=== PATIENT | female | born 1955 | race Caucasian/White ===

== ENCOUNTER 2020-07-25 02:29 | Emergency (ER) | payer BC, OTHER ==
[2020-07-25] MEDS ORDERED: Ketorolac 30 MG/ML SDV IM ONE (02:59)
--- NOTE | 2020-07-25 03:10 | EDM.PDOC ---
<Myke Tee - Last Filed: 07/25/20 06:45> ED HPI GENERAL MEDICAL PROBLEM - General Chief Complaint: Genitourinary Problem Stated Complaint: POSSIBLE KIDNEY STONES Time Seen by Provider: 07/25/20 02:56 Source of Information: Reports: Patient History Limitations: Reports: No Limitations - History of Present Illness INITIAL COMMENTS - FREE TEXT/NARRATIVE: Izabela is a 64-year-old female presenting to the ED with complaint of an acute onset of right flank pain. Patient was in her usual state of health when she had the acute onset of symptoms about 1 hour prior to arrival. She is complaining of right flank pain radiating around to the right upper quadrant. She denies any frequency, urgency, or burning with urination. She denies any fever or chills. She does have some mild nausea. She denies any diarrhea or constipation. Ironically, the patient is scheduled to see urology tomorrow in [place] to evaluate for her history of kidney stones. She apparently had kidney stones 2 years ago and reports that during her CT scan at that time she had a 1 cm stone in the right kidney. Review of the medical records fails to demonstrate any significant scans in the past but there is conversation with Dr. Willett at [facility] concerning a referral to urology 2 years ago that apparently the patient did not follow through with. Patient denies any hematuria. She states her pain is pretty constant rating it an 8 out of 10. She denies any trauma or straining. The patient's past medical records from [facility] show that he she had a CT of the abdomen and pelvis on 08/22/2018 showing a a 1 cm nonobstructing stone within the interpolar region of the right kidney. There is a 5 mm stone in the distal left ureter causing obstruction and hydronephrosis. There is a 1 mm punctate nonobstructing stone within the inferior pole of the left kidney. Patient had a large hiatal hernia. 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: Dermatologic History: Reports: Eczema - Infectious Disease History Infectious Disease History: Reports: Chicken Pox, Measles, Novel Coronavirus - Past Surgical History HEENT Surgical History: Reports: Other (See Below) GI Surgical History: Reports: Colonoscopy, Polypectomy Social & Family History - Tobacco Use Tobacco Use Status *Q: Never Tobacco User - Recreational Drug Use Recreational Drug Use: No ED ROS GENERAL - Review of Systems Review Of Systems: See Below Constitutional: Reports: No Symptoms HEENT: Reports: No Symptoms Respiratory: Reports: No Symptoms Cardiovascular: Reports: No Symptoms Endocrine: Reports: No Symptoms GI/Abdominal: Reports: Abdominal Pain (Right upper quadrant and right flank), Nausea : Reports: Flank Pain (Right flank) Musculoskeletal: Reports: No Symptoms Skin: Reports: No Symptoms Neurological: Reports: No Symptoms Psychiatric: Reports: No Symptoms Hematologic/Lymphatic: Reports: No Symptoms Immunologic: Reports: No Symptoms ED EXAM, RENAL/ - Physical Exam Exam: See Below Exam Limited By: No Limitations General Appearance: Alert, Mild Distress Eye Exam: Bilateral Eye: EOMI, PERRL Throat/Mouth: Normal Inspection, Normal Voice, No Airway Compromise Head: Atraumatic, Normocephalic Neck: Normal Inspection Respiratory/Chest: No Respiratory Distress, Lungs Clear, Normal Breath Sounds Cardiovascular: Normal Peripheral Pulses, Regular Rate, Rhythm, No Murmur GI/Abdominal: Normal Bowel Sounds, Soft, Tender (Mild tenderness in right upper quadrant) Back Exam: Normal Inspection, Full Range of Motion, CVA Tenderness (R) (Mild). No: Muscle Spasm, Paraspinal Tenderness, Vertebral Tenderness Extremities: Normal Inspection Neurological: Alert, Oriented, Normal Cognition, No Motor/Sensory Deficits Psychiatric: Normal Affect Skin Exam: Warm, Dry, Intact, Normal Color Lymphatic: No Adenopathy Course - Radiology Interpretation Free Text/Narrative:: I reviewed the report from radiology on the CT of the abdomen and pelvis without contrast. There is a 1.2 x 1 cm stone in the right renal pelvis causing obstruction of the proximal right ureter and mild pelviectasis. There is a 1 mm stone in both inferior poles of the kidneys that are nonobstructing. There is an large gas-filled hiatal hernia. - Re-Assessments/Exams Free Text/Narrative Re-Assessment/Exam: 07/25/20 03:40 I reviewed the patient's labs including a CBC and comprehensive metabolic panel. Her CBC is unremarkable. Her comprehensive metabolic panel is significant for a glucose of 170. The patient does not carry the diagnosis of diabetes but does have the body habitus for it. I will have her follow-up with her primary care provider, Dr. Willett to determine if she is in fact diabetic. I did review the CT of the abdomen and pelvis without contrast showing a rather large stone in the right renal pelvis causing mild nephrosis. This is likely the nidus for her pain. The stone measures 1.1 x 1.3 cm. She does have a small punctate stone in the left inferior renal pole. There is no other stones identified. Patient was initially given Toradol 30 mg IM for pain control prior to the CT but now will be getting more liberalized pain control with Dilaudid and normal saline IV. In addition she was given Zofran 4 mg IV push for nausea. I discussed the case with Dr. Chan from the hospitalist service at [facility] to arrange for transfer of the patient. He accepts the patient in transfer, however, she will need to stay with us in the ED until a bed is available which may be later this morning. Ironically, the patient was already scheduled to see the urologist Dr. Downs at [facility] this afternoon for ureterolithiasis. 07/25/20 06:45 patient's COVID 19 test is negative. Care of the patient will be turned over to Dr. Zuñiga at 0700 hrs while awaiting a room assignment from [facility] this morning Departure - Departure Disposition: DC/Tfer to [facility] 02 Clinical Impression: Calcium ureterolithiasis, Renal colic on right side, Renal pelviectasis - Discharge Information Referrals: PCP,None [Primary Care Provider] - Forms: ED Department Discharge Sepsis Event Note (ED) - Evaluation Sepsis Screening Result: No Definite Risk - Problem List & Annotations (1) Calcium ureterolithiasis SNOMED Code(s): 68011920 Code(s): N20.1 - CALCULUS OF URETER Status: Acute Priority: High (2) Renal colic on right side SNOMED Code(s): 2065029 Code(s): N23 - UNSPECIFIED RENAL COLIC Status: Acute Priority: High (3) Renal pelviectasis SNOMED Code(s): 891041083 Code(s): N28.89 - OTHER SPECIFIED DISORDERS OF KIDNEY AND URETER Status: Acute Priority: High - Problem List Review Problem List Initiated/Reviewed/Updated: Yes <Rhett Chen - Last Filed: 07/25/20 12:42> Course - Vital Signs Last Recorded V/S: Last Vital Signs Temp 97.0 F 07/25/20 02:46 Pulse 74 07/25/20 11:05 Resp 12 07/25/20 10:00 BP 124/67 07/25/20 11:05 Pulse Ox 94 L 07/25/20 11:05 - Orders/Labs/Meds Orders: Active Orders 24 hr Category Date Time Status Isolation [COMM] Stat Oth 07/25/20 03:54 Ordered Saline Lock Insert [OM.PC] Routine Oth 07/25/20 03:39 Ordered Labs: Laboratory Tests 07/25/20 07/25/20 07/25/20 Range/Units 03:08 03:08 03:33 WBC 7.7 (4.5-11.0) K/uL RBC 4.23 (3.30-5.50) M/uL Hgb 11.7 L (12.0-15.0) g/dL Hct 37.4 (36.0-48.0) % MCV 88 (80-98) fL MCH 28 (27-31) pg MCHC 31 L (32-36) % Plt Count 296 (150-400) K/uL Neut % (Auto) 57 (36-66) % Lymph % (Auto) 32 (24-44) % [place] % (Auto) 9 H (2-6) % Eos % (Auto) 1 L (2-4) % Baso % (Auto) 0 (0-1) % Sodium 145 (140-148) mmol/L Potassium 4.0 (3.6-5.2) mmol/L Chloride 106 (100-108) mmol/L Carbon Dioxide 25 (21-32) mmol/L Anion Gap 14.0 (5.0-14.0) mmol/L BUN 19 H (7-18) mg/dL Creatinine 0.9 (0.6-1.0) mg/dL Est Cr Clr Drug Dosing 48.91 mL/min Estimated GFR (MDRD) > 60 (>60) Glucose 170 H (74-106) mg/dL Calcium 8.6 (8.5-10.1) mg/dL Total Bilirubin 0.2 (0.2-1.0) mg/dL AST 12 L (15-37) U/L ALT 24 (12-78) U/L Alkaline Phosphatase 101 (46-116) U/L Total Protein 6.6 (6.4-8.2) g/dL Albumin 3.5 (3.4-5.0) g/dL Globulin 3.1 (2.3-3.5) g/dL Albumin/Globulin Ratio 1.1 L (1.2-2.2) Urine Color Yellow (YELLOW) Urine Appearance Cloudy A (CLEAR) Urine pH 6.0 (5.0-8.0) Ur Specific [place] >= 1.030 (1.008-1.030) Urine Protein 30 H (NEGATIVE) mg/dL Urine Glucose (UA) Negative (NEGATIVE) mg/dL Urine Ketones Negative (NEGATIVE) mg/dL Urine Occult Blood Large H (NEGATIVE) Urine Nitrite Negative (NEGATIVE) Urine Bilirubin Negative (NEGATIVE) Urine Urobilinogen 0.2 (0.2-1.0) EU/dL Ur Leukocyte Esterase Trace H (NEGATIVE) Urine RBC 40-50 H (0-5) Urine WBC 0-5 (0-5) Ur Epithelial Cells Rare Amorphous Sediment Not seen Urine Bacteria Rare Urine Mucus Not seen Influenza Type A RNA (NEGATIVE) RSV RNA (INAAT) (NEGATIVE) Influenza Type B RNA (NEGATIVE) SARS-CoV-2 RNA (MARY) (NEGATIVE) 07/25/20 Range/Units 04:26 WBC (4.5-11.0) K/uL RBC (3.30-5.50) M/uL Hgb (12.0-15.0) g/dL Hct (36.0-48.0) % MCV (80-98) fL MCH (27-31) pg MCHC (32-36) % Plt Count (150-400) K/uL Neut % (Auto) (36-66) % Lymph % (Auto) (24-44) % [place] % (Auto) (2-6) % Eos % (Auto) (2-4) % Baso % (Auto) (0-1) % Sodium (140-148) mmol/L Potassium (3.6-5.2) mmol/L Chloride (100-108) mmol/L Carbon Dioxide (21-32) mmol/L Anion Gap (5.0-14.0) mmol/L BUN (7-18) mg/dL Creatinine (0.6-1.0) mg/dL Est Cr Clr Drug Dosing mL/min Estimated GFR (MDRD) (>60) Glucose (74-106) mg/dL Calcium (8.5-10.1) mg/dL Total Bilirubin (0.2-1.0) mg/dL AST (15-37) U/L ALT (12-78) U/L Alkaline Phosphatase (46-116) U/L Total Protein (6.4-8.2) g/dL Albumin (3.4-5.0) g/dL Globulin (2.3-3.5) g/dL Albumin/Globulin Ratio (1.2-2.2) Urine Color (YELLOW) Urine Appearance (CLEAR) Urine pH (5.0-8.0) Ur Specific [place] (1.008-1.030) Urine Protein (NEGATIVE) mg/dL Urine Glucose (UA) (NEGATIVE) mg/dL Urine Ketones (NEGATIVE) mg/dL Urine Occult Blood (NEGATIVE) Urine Nitrite (NEGATIVE) Urine Bilirubin (NEGATIVE) Urine Urobilinogen (0.2-1.0) EU/dL Ur Leukocyte Esterase (NEGATIVE) Urine RBC (0-5) Urine WBC (0-5) Ur Epithelial Cells Amorphous Sediment Urine Bacteria Urine Mucus Influenza Type A RNA Negative (NEGATIVE) RSV RNA (INAAT) Negative (NEGATIVE) Influenza Type B RNA Negative (NEGATIVE) SARS-CoV-2 RNA (MARY) Negative (NEGATIVE) Meds: Medications Discontinued Medications Generic Name Dose Route Start Last Admin Trade Name Freq PRN Reason Stop Dose Admin Hydromorphone HCl 1 mg 07/25/20 03:39 07/25/20 05:08 Hydromorphone 1 Mg/Ml Syringe IVPUSH 07/25/20 03:40 1 mg ONETIME ONE Administration Sodium Chloride 1,000 mls @ 150 mls/hr 07/25/20 03:45 07/25/20 03:49 Normal Saline IV 150 mls/hr ASDIRECTED LO Administration Ketorolac Tromethamine 30 mg 07/25/20 02:59 07/25/20 03:22 Ketorolac 30 Mg/Ml Sdv IM 07/25/20 03:00 30 mg ONETIME ONE Administration Ondansetron HCl 4 mg 07/25/20 03:39 07/25/20 03:49 Ondansetron 4 Mg/2 Ml Sdv IVPUSH 07/25/20 03:40 4 mg ONETIME ONE Administration Sodium Chloride 10 ml 07/25/20 03:39 07/25/20 03:49 Sodium Chloride 0.9% 10 Ml Syringe FLUSH 10 ml ASDIRECTED PRN Administration Keep Vein Open Departure - Departure Time of Disposition: 11:32 Sepsis Event Note (ED) - Focused Exam Vital Signs: Vital Signs Temp Pulse Resp BP Pulse Ox 07/25/20 11:05 74 124/67 94 L 07/25/20 10:00 73 12 127/75 93 L 07/25/20 09:00 80 12 114/66 98 07/25/20 08:00 73 16 109/66 97 07/25/20 07:08 82 16 106/60 99 07/25/20 06:06 16 130/76 95 07/25/20 05:08 80 17 154/84 H 95 07/25/20 03:47 18 166/103 H 97 07/25/20 02:46 97.0 F 73 20 151/95 H 99
--- NOTE | 2020-07-25 03:38 | CRLCT ---
INDICATION: Right flank pain TECHNIQUE: CT Abdomen and pelvis without i.v. contrast. Coronal and sagittal reformats were obtained. COMPARISON: None FINDINGS: Lower chest: Mild compressive atelectasis in the medial left lower lobe is noted. Liver: There is a cyst in the left lobe of the liver present measuring 1.4 cm. 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 Pancreas: Unremarkable. Gallbladder: Unremarkable. Kidney: There is a 12 x 9 mm stone present in the right ureteropelvic junction causing mild renal pelvicaliectasis. A 1 mm stone is present in the lower pole of the right and left kidneys. Adrenal: Unremarkable. Bowel: A moderate to large, gas-filled gastric hernia is present and partially visualized. The appendix cannot be identified but there are no inflammatory changes noted in the right lower quadrant. Vascular: See above. Lymph: Unremarkable. Peritoneum: Unremarkable. No pneumoperitoneum is seen. No significant ascites is noted. Pelvis: Unremarkable. Soft tissue: Unremarkable. Bone: Mild levoscoliosis is noted with associated facet arthritis and degenerative disc disease. A vertebral hemangioma is present and occupies most of the T12 vertebral body. IMPRESSION: 1. There is a 12 x 9 mm stone present in the right ureteropelvic junction causing mild renal pelvicaliectasis. Dictated by Maico Monge MD @ 07/25/2020 3:37:10 AM Please note that all CT scans at this facility use dose modulation, iterative reconstruction, and/or weight-based dosing when appropriate to reduce radiation dose to as low as reasonably achievable. Dictated by: Maico Monge MD @ 07/25/2020 03:37:12 (Electronically Signed)
[2020-07-25] MEDS ORDERED: Ondansetron 4 MG/2 ML SDV IVPUSH ONE (03:39)
[2020-07-25] MEDS ORDERED: HYDROmorphone 1 MG/ML Syringe IVPUSH ONE (03:39)
[2020-07-25] MEDS ORDERED: Sodium Chloride 0.9% 10 ML Syringe FLUSH PRN (03:39)
[2020-07-25] MEDS ORDERED: Sodium Chloride 0.9% 1,000 ML IV SCH (03:45)
[2020-07-25 05:01] LABS: CORONAVIRUS COVID-19 NAA NEGATIVE (NEGATIVE)
== END 2020-07-25 11:32 ==
LOC: JP.ED 02:29
DX: N28.89 Other specified disorders of kidney and ureter (principal); N20.2 Calculus of kidney with calculus of ureter; Z20.822 Contact with and (suspected) exposure to COVID-19
CPT/HCPCS: 0241U; 36415; 74176; 80053; 81001; 85025; 96372; 96374; 96375; 99285; J1170; J1885; J2405; J7030

== ENCOUNTER 2020-08-06 18:17 | Emergency (ER) | payer BC ==
--- NOTE | 2020-08-06 19:03 | EDM.PDOC ---
ED HPI GENERAL MEDICAL PROBLEM - General Chief Complaint: Genitourinary Problem Stated Complaint: HAD SURG TODAY IN [place] Time Seen by Provider: 08/06/20 18:55 Source of Information: Reports: Patient History Limitations: Reports: No Limitations - History of Present Illness INITIAL COMMENTS - FREE TEXT/NARRATIVE: Izabela is a 64-year-old female presenting to the ED for complaint of flank pain. Patient was seen by urology today at [place] where she underwent lithotripsy to break up a ureterolithiasis. Since being discharged from [facility], the patient has been passing large clots and having very significant right flank pain radiating to the right lower quadrant. She denies any fever or chills. She has had nausea but no vomiting. 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: Dermatologic History: Reports: Eczema - Infectious Disease History Infectious Disease History: Reports: Chicken Pox, Measles, Novel Coronavirus - Past Surgical History HEENT Surgical History: Reports: Other (See Below) GI Surgical History: Reports: Colonoscopy, Polypectomy ED ROS GENERAL - Review of Systems Review Of Systems: See Below Constitutional: Reports: Diaphoresis HEENT: Reports: No Symptoms Respiratory: Reports: No Symptoms Cardiovascular: Reports: No Symptoms Endocrine: Reports: No Symptoms GI/Abdominal: Reports: Abdominal Pain, Nausea : Reports: Flank Pain, Hematuria Musculoskeletal: Reports: No Symptoms Skin: Reports: No Symptoms Neurological: Reports: No Symptoms Psychiatric: Reports: No Symptoms Hematologic/Lymphatic: Reports: No Symptoms Immunologic: Reports: No Symptoms ED EXAM, RENAL/ - Physical Exam Exam: See Below Exam Limited By: No Limitations General Appearance: Alert, Anxious, Moderate Distress Eye Exam: Bilateral Eye: EOMI, PERRL Throat/Mouth: Normal Inspection, Normal Oropharynx, Normal Voice, No Airway Compromise Head: Atraumatic Neck: Normal Inspection Respiratory/Chest: No Respiratory Distress, Lungs Clear, Normal Breath Sounds Cardiovascular: Normal Peripheral Pulses, Regular Rate, Rhythm GI/Abdominal: Normal Bowel Sounds Back Exam: Full Range of Motion, CVA Tenderness (R) Extremities: Normal Inspection Neurological: Alert, Oriented, Normal Cognition, No Motor/Sensory Deficits Psychiatric: Normal Affect, Anxious Skin Exam: Diaphoretic, Pallor Lymphatic: No Adenopathy Course - Vital Signs Last Recorded V/S: Last Vital Signs Temp 36.2 C 08/06/20 19:07 Pulse 94 08/06/20 19:07 Resp 18 08/06/20 19:07 BP 167/102 H 08/06/20 19:07 Pulse Ox 96 08/06/20 19:07 - Orders/Labs/Meds Orders: Active Orders 24 hr Category Date Time Status Abdomen Pelvis wo Cont [CT] Stat Exams 08/06/20 19:56 Taken Sodium Chloride 0.9% [Saline Flush] Med 08/06/20 19:04 Active 10 ml FLUSH ASDIRECTED PRN Saline Lock Insert [OM.PC] Routine Oth 08/06/20 19:04 Ordered Medication Orders Sodium Chloride (Sodium Chloride 0.9% 10 Ml Syringe) 10 ml FLUSH ASDIRECTED PRN PRN Reason: Keep Vein Open Last Admin: 08/06/20 19:20 Dose: 10 ml Documented by: FABIOLA Labs: Laboratory Tests 08/06/20 08/06/20 08/06/20 Range/Units 18:59 19:10 19:10 WBC 9.5 (4.5-11.0) K/uL RBC 4.43 (3.30-5.50) M/uL Hgb 12.1 (12.0-15.0) g/dL Hct 38.7 (36.0-48.0) % MCV 87 (80-98) fL MCH 27 (27-31) pg MCHC 31 L (32-36) % Plt Count 314 (150-400) K/uL Neut % (Auto) 92 H (36-66) % Lymph % (Auto) 7 L (24-44) % [place] % (Auto) 1 L (2-6) % Eos % (Auto) 0 L (2-4) % Baso % (Auto) 0 (0-1) % Sodium 137 L (140-148) mmol/L Potassium 4.1 (3.6-5.2) mmol/L Chloride 100 (100-108) mmol/L Carbon Dioxide 23 (21-32) mmol/L Anion Gap 18.1 H (5.0-14.0) mmol/L BUN 12 (7-18) mg/dL Creatinine 0.8 (0.6-1.0) mg/dL Est Cr Clr Drug Dosing 55.02 mL/min Estimated GFR (MDRD) > 60 (>60) Glucose 147 H (74-106) mg/dL Calcium 8.5 (8.5-10.1) mg/dL Total Bilirubin 0.4 D (0.2-1.0) mg/dL AST 17 (15-37) U/L ALT 26 (12-78) U/L Alkaline Phosphatase 108 (46-116) U/L Total Protein 7.1 (6.4-8.2) g/dL Albumin 3.7 (3.4-5.0) g/dL Globulin 3.4 (2.3-3.5) g/dL Albumin/Globulin Ratio 1.1 L (1.2-2.2) Urine Color Red A (YELLOW) Urine Appearance Slightly cloudy A (CLEAR) Urine pH 7.5 (5.0-8.0) Ur Specific [place] 1.025 (1.008-1.030) Urine Protein 100 H (NEGATIVE) mg/dL Urine Glucose (UA) Negative (NEGATIVE) mg/dL Urine Ketones 40 H (NEGATIVE) mg/dL Urine Occult Blood Large H (NEGATIVE) Urine Nitrite Negative (NEGATIVE) Urine Bilirubin Negative (NEGATIVE) Urine Urobilinogen 0.2 (0.2-1.0) EU/dL Ur Leukocyte Esterase Trace H (NEGATIVE) Urine RBC >100 H (0-5) Urine WBC Not seen (0-5) Ur Epithelial Cells Not seen Amorphous Sediment Not seen Urine Bacteria Few Urine Mucus Not seen Meds: Medications Generic Name Dose Route Start Last Admin Trade Name Freq PRN Reason Stop Dose Admin Sodium Chloride 10 ml 08/06/20 19:04 08/06/20 19:20 Sodium Chloride 0.9% 10 Ml Syringe FLUSH 10 ml ASDIRECTED PRN Administration Keep Vein Open Discontinued Medications Generic Name Dose Route Start Last Admin Trade Name Freq PRN Reason Stop Dose Admin Hydromorphone HCl 1 mg 08/06/20 19:04 08/06/20 19:20 Hydromorphone 1 Mg/Ml Syringe IVPUSH 08/06/20 19:05 1 mg ONETIME ONE Administration Sodium Chloride 1,000 mls @ 999 mls/hr 08/06/20 19:04 08/06/20 19:20 Normal Saline IV 08/06/20 20:04 999 mls/hr .BOLUS ONE Administration Ondansetron HCl 4 mg 08/06/20 19:04 08/06/20 19:20 Ondansetron 4 Mg/2 Ml Sdv IVPUSH 08/06/20 19:05 4 mg ONETIME ONE Administration Prochlorperazine Edisylate 10 mg 08/06/20 20:04 08/06/20 20:08 Prochlorperazine 10 Mg/2 Ml Sdv IVPUSH 08/06/20 20:05 10 mg ONETIME ONE Administration - Radiology Interpretation Free Text/Narrative:: I reviewed the CT of the abdomen and pelvis without contrast showing a ureteral stent from the right renal pelvis extending down into the bladder. There is no longer evidence for the 1.2 x 1 cm stone wedged in the renal pelvis. There is a small amount of stranding around the kidney likely remnant of the hydronephrosis. There is a 1 mm stone in the lower pole of the left kidney and a 3 mm stone in the upper pole of the right kidney. - Re-Assessments/Exams Free Text/Narrative Re-Assessment/Exam: 08/06/20 20:52 Rachel underwent a lithotripsy today to remove a 1.2 cm stone from her right renal pelvis. It also appears that she had a stent placed from the right kidney extending down the entire ureter to the bladder on the right side. There is no evidence for any remnants of the 1.2 x 1 cm stone that was wedged in the neck of the kidney. There were no significant abnormalities in the labs except for considerable hematuria. Her pain is likely due to some spasm from the lithotripsy as well as irritation from the ureteral stent. Will increase her pain medication to Percocet 5/325 1 tablet every 4-6 hours as needed for pain control dispensing 10 tablets. In addition, the Zofran was not helping her nausea and vomiting very well so we will also send her home with Phenergan for nausea if the Zofran is insufficient. Patient did receive a liter of normal saline for rehydration while in the ED as well as Dilaudid 1 mg IV push and Zofran 4 mg IV push. She tingled to have nausea and dry retching and was given Compazine 10 mg IV push. Indications to return to the ED were discussed and at this time I believe she is suitable for discharge home in satisfactory condition. Departure - Departure Time of Disposition: 20:55 Disposition: Home, Self-Care 01 Clinical Impression: Right flank pain, Status post laser lithotripsy of ureteral calculus Hematuria Qualifiers: Hematuria type: gross Qualified Code(s): R31.0 - Gross hematuria - Discharge Information Instructions: Flank Pain, Adult, [id number], Pain Medicine Instructions, [id number] Referrals: Manjeet Willett MD [Primary Care Provider] - Forms: ED Department Discharge Care Plan Goals: I have prescribed Percocet which is the strongest oral pain medication available for your pain control. In addition I have included a prescription for Phenergan which is an alternative to the Zofran for your nausea. Follow-up with your urologist as needed. Return to the ED if your pain becomes uncontrollable. Sepsis Event Note (ED) - Focused Exam Vital Signs: Vital Signs Temp Pulse Resp BP Pulse Ox 08/06/20 19:07 36.2 C 94 18 167/102 H 96 08/06/20 18:55 36.2 C 94 18 167/102 H 96 - Problem List & Annotations (1) Hematuria SNOMED Code(s): 39559800 Code(s): R31.9 - HEMATURIA, UNSPECIFIED Status: Acute Priority: Medium Current Visit: Yes Qualifiers: Hematuria type: gross Qualified Code(s): R31.0 - Gross hematuria (2) Right flank pain SNOMED Code(s): 591567002 Code(s): R10.9 - UNSPECIFIED ABDOMINAL PAIN Status: Acute Priority: High Current Visit: Yes (3) Status post laser lithotripsy of ureteral calculus SNOMED Code(s): 120478009 Code(s): Z98.890 - OTHER SPECIFIED POSTPROCEDURAL STATES Status: Acute Priority: Medium Current Visit: Yes - Problem List Review Problem List Initiated/Reviewed/Updated: Yes - My Orders Last 24 Hours: My Active Orders 08/06/20 19:04 Sodium Chloride 0.9% [Saline Flush] 10 ml FLUSH ASDIRECTED PRN Saline Lock Insert [OM.PC] Routine 08/06/20 19:56 Abdomen Pelvis wo Cont [CT] Stat - Assessment/Plan Last 24 Hours: My Active Orders 08/06/20 19:04 Sodium Chloride 0.9% [Saline Flush] 10 ml FLUSH ASDIRECTED PRN Saline Lock Insert [OM.PC] Routine 08/06/20 19:56 Abdomen Pelvis wo Cont [CT] Stat
[2020-08-06] MEDS ORDERED: HYDROmorphone 1 MG/ML Syringe IVPUSH ONE (19:04)
[2020-08-06] MEDS ORDERED: Sodium Chloride 0.9% 1,000 ML IV ONE (19:04)
[2020-08-06] MEDS ORDERED: Ondansetron 4 MG/2 ML SDV IVPUSH ONE (19:04)
[2020-08-06] MEDS ORDERED: Sodium Chloride 0.9% 10 ML Syringe FLUSH PRN (19:04)
[2020-08-06] MEDS ORDERED: Prochlorperazine 10 MG/2 ML SDV IVPUSH ONE (20:04)
--- NOTE | 2020-08-06 21:02 | CRLCT ---
INDICATION: Ureterolithiasis. Status post lithotripsy or earlier today. TECHNIQUE: CT abdomen and pelvis without contrast. COMPARISON: July 25, 2020. FINDINGS: Lower chest: Unchanged large hiatal hernia. Liver: Unremarkable. No suspicious mass. Gallbladder and bile ducts: No stones or inflammation. No biliary dilatation. Pancreas: Unremarkable. No mass or inflammation. Spleen: Normal in size. No masses. Adrenal glands: Stable very small right adrenal adenoma. Kidneys: Right ureteral stent appears in satisfactory position. No ureteral stones evident. Multiple small stone fragments are in right renal calices. Single tiny stone is in the left renal collecting system. No hydronephrosis. There is edema about the right renal pelvis and proximal ureter. GI tract: Unremarkable. Normal in caliber. No sign of mass or inflammation. Normal appendix. Vasculature: Unremarkable. Lymph nodes: No lymphadenopathy. Abdominal wall/Omentum/Peritoneum: Unremarkable. No sign of mass or infiltration. No free air or significant free fluid. Pelvis: Stable small left ovarian cyst. Bones: Unremarkable for age. IMPRESSION: 1. Right ureteral stent is in satisfactory position and there is no hydronephrosis. However, there is new edema about the right renal pelvis and proximal ureter. 2. No ureteral stones. Multiple small stone fragments are in right renal calices and there is a single very small stone in a left renal calyx. 3. No other acute findings or significant changes from the prior exam. Dictated by Justin Balderas MD @ 08/06/2020 9:00:07 PM Please note that all CT scans at this facility use dose modulation, iterative reconstruction, and/or weight-based dosing when appropriate to reduce radiation dose to as low as reasonably achievable. Dictated by: Justin Balderas MD @ 08/06/2020 21:00:12 (Electronically Signed)
== END 2020-08-06 21:11 | disposition home or self-care (01) ==
LOC: JP.ED 18:17
DX: R10.9 Unspecified abdominal pain (principal); R31.0 Gross hematuria; Z98.890 Other specified postprocedural states
CPT/HCPCS: 36415; 74176; 80053; 81001; 85025; 96374; 96375; 99284; 99284-25; J0780; J1170; J2405; J7030